=== PATIENT | female | born 1980 | race Caucasian/White ===

== ENCOUNTER 2016-07-10 14:26 | Emergency (ER) | payer OTHER ==
--- NOTE | 2016-07-10 17:49 | DIAGNOSTIC IMAGING REPORT ---
PROCEDURE: XR CHEST 1 VIEW INDICATION: CHEST PAIN TECHNIQUE: Portable AP view 03:20 p.m. COMPARISON: None. FINDINGS: Lungs are clear. Heart and mediastinum are normal. Thorax is normal. IMPRESSION: 1. Negative chest.
--- NOTE | 2016-07-10 17:52 | ED CLINICAL REPORT ---
Clinical Report - Physicians/Mid Levels [facility] [address] [place] [address] 07/10/2016 14:28 Patient: HARJIT STEVENSON Time Seen: 14:38. Arrived- By private vehicle. Historian- patient. HISTORY OF PRESENT ILLNESS Chief Complaint: CHEST PAIN. At its maximum, severity described as moderate. When seen in the E.D., it was gone. It is described as sharp and it is described as located in the central chest area, epigastric area and left arm. This started today at 5 hours ago. Onset during light activity. (L arm sore.). (No worse with palp or resp Estrogen - pt is taking BCP Ms Stevenson ordinarily exercises vigorously without any symptoms.). Similar symptoms previously: REVIEW OF SYSTEMS Uses control pills and sexual partner has had a vasectomy. No chills, fever, eye irritation, mouth sores or cough. No difficulty breathing, pedal edema, abdominal pain, black stools or bloody stools. No back pain, joint pain or difficulty with urination. The patient has had chest pain. All systems otherwise negative, except as recorded above. PAST HISTORY PCP: Mannie Beauchamp [facility] practice. PROBLEMS: Animal Bite. Concussion. Cervical Strain. Contusion. Costochondritis. Abdominal Pain. GERD. Ovarian Cyst. Migraine Headache. Insect Bite(s). Asthma. ADDITIONAL SURGERIES: Breast Augmentation. Foot . Sinus Surgery. Tonsillectomy Illness: Migreaine headache, sequellae following TA. Risk factors for heart disease- positive family history. Denies the following risk factors for heart disease - diabetes, elevated cholesterol, hypertension and smoking. Medications: Tylenol prn. Gabapentin Oral 600 mg, 2x a day as needed. Percocet Oral 10/325 mg, 4x a day. TraZODone HCl Oral 100 mg, daily. Vitamin. Xanax Oral 1 mg, 2x a day as needed. Allergies: Augmentin. Definite Moderate(nausea, vomiting) Doxycycline Calcium. (skin feels like it's "burning") Sulfa Antibiotics. SOCIAL HISTORY Never smoker. ADDITIONAL NOTES The nursing notes have been reviewed. PHYSICAL EXAM Vital Signs: 07/10/2016 18:09 BP: 118/72. HR: 66. RR: 15. O2 saturation: 100%. Temp: 98.1 F. Pain level now: 0/10. 07/10/2016 14:33 BP: 127/68. HR: 56. RR: 18. O2 saturation: 100%. Temp: 98.5 F. Pain level now: 2/10. Appearance: Alert. No acute distress. Eyes: Eyes normal inspection. ENT: Pharynx normal. (two small areas of scar at site of tonsillectomy). Neck: Normal inspection. CVS: Normal heart rate and rhythm. Heart sounds normal. Respiratory: No respiratory distress. Breath sounds normal. Chest nontender. Abdomen: Soft and nontender. Bowel sounds normal. Back: Normal external inspection. Skin: Skin warm. Normal skin color. No rash. Extremities: Extremities exhibit normal ROM. No lower extremity edema. LABS, X-RAYS, AND EKG EKG: No acute process. No acute ischemia. Rate: 63. Normal P waves. Normal KARLOS. Normal QRS complex. Normal axis. Normal ST and T waves. EKG #2: Normal. Chest X-ray: No acute disease. The X-rays were interpreted contemporaneously by me. Laboratory Tests: CBC w Diff: (KARIME: 07/10/2016 14:40) ( MsgRcvd 07/10/2016 15:27) Final results Test Result Flag Units (Reference) WHITE BLOOD COUNT 6.1 K/uL (4.5-11.5) RED BLOOD COUNT 3.70 L M/uL (4.00-5.20) HEMOGLOBIN 11.6 L gm/dL (12.0-16.0) HEMATOCRIT 34.4 L % (36.0-46.0) MEAN CELL VOLUME 93 fL (80-100) MEAN CORPUSCULAR HGB 32 pg (26-34) MEAN CORPUSCULAR HGB CONC 34 g/dL (31-37) RED CELL DISTRIBUTION WIDTH 13.2 % (11.6-14.8) PLATELET COUNT 200 K/uL (150-400) NEUTROPHIL % 44.0 L % (50-75) LYMPH % 47.2 H % (25-40) MONO % 6.8 % (3-14) EOSINOPHIL % 1.1 % (0-4) BASOPHIL % 0.9 % (0-2) [id number]: (KARIME: 07/10/2016 14:40) ( [facility] 07/10/2016 15:39) Final results Test Result Flag Units (Reference) D-DIMER QUANTITATIVE < 0.27 L ug/mLFEU (0.27-0.52) The primary value of this quantitative assay relates toits negative predictive value (i.e. exclusion) of pulmonaryembolism/deep vein thrombosis/DIC.Elevated levels of d-dimer may also occur with:, age, cancer, inflammation, liver disease,post-op, infection, hematoma, coronary disease, peripheralarteriopathy, bleeding disorders and thrombolytic treatment.Results should be correlated with other clinical andradiological data.Testing Methodology: Latex Immunoassay Troponin-I: (KARIME: 07/10/2016 15:47) ( [facility] 07/10/2016 17:45) Final results Test Result Flag Units (Reference) TROPONIN I <0.05 ng/mL (0.00-1.5) TROPONIN REFERENCE RANGE:<0.1 NEGATIVE0.1-1.5 INDETERMINANT>1.5 POSITIVE CHEM 13 PANEL: (KARIME: 07/10/2016 14:40) ( [facility] 07/10/2016 15:39) Final results Test Result Flag Units (Reference) GLUCOSE 81 mg/dL (70-110) BUN 14 mg/dL (7-18) CREATININE 0.9 mg/dL (0.6-1.3) Estimated GFR >60 mL/min Estimated GFR- >60 mL/min Note: Persistent reduction over 3 months in eGFR<60 mL/min/1.73 m2 defines CKD. Patients with eGFR values>=60 mL/min/1.73 m2 may also have CKD if evidence ofpersistent proteinuria. Additional information may be foundat www.kidney.org. SODIUM 142 mmol/L (136-145) POTASSIUM 3.5 mmol/L (3.5-5.1) CHLORIDE 105 mmol/L (98-107) CARBON DIOXIDE 25 mmol/L (21-32) CALCIUM 8.5 mg/dL (8.5-10.1) TOTAL PROTEIN 7.2 g/dL (6.4-8.2) ALBUMIN 3.9 g/dL (3.3-5.0) BILIRUBIN, TOTAL 0.2 mg/dL (0.0-1.0) ALKALINE PHOSPHATASE 60 U/L (46-116) AST (SGOT) 21 U/L (15-37) ALT (SGPT) 29 U/L (12-78) MAGNESIUM 2.3 mg/dL (1.8-2.4) CPK 161 U/L (24-260) TROPONIN I 0.08 ng/mL (0.00-1.5) TROPONIN REFERENCE RANGE:<0.1 NEGATIVE0.1-1.5 INDETERMINANT>1.5 POSITIVE . PROGRESS AND PROCEDURES Course of Care: 15:35 07/10/16. repeat EKG 15:46 07/10/16. D dimer is negative. 17:47 07/10/16. Second troponin and EKG normal. Given two negative EKGs and troponins greater than 6 hours after onset of symptoms this is not a [place]. Given usual exercise tolerance this is unlikely unstable angina. Not PE - D dimer neg Not TA dissection or pneumothorax by CXR and history Not esophageal rupture by history. CLINICAL IMPRESSION Chest pain. Clinical picture does not suggest myocardial infarction, aortic dissection, pulmonary embolism, pneumonia or pleurisy. Clinical picture does not suggest pneumothorax. INSTRUCTIONS (TAKE ONE ASPIRIN PER DAY IMMEDIATE RECHECK FOR NEW BAD SYMPTOMS OR FOR STRONG CHEST PAIN OR SHORTNESS OF BREATH. NO HEAVY WORKOUTS UNTIL YOU SEE YOUR DR.). Follow-up: Follow up with your doctor in six days. Understanding of the discharge instructions verbalized by patient. (Electronically signed by Len Lopes MD 07/13/2016 6:39)
--- NOTE | 2016-07-10 17:52 | ED CLINICAL REPORT ---
Clinical Report - Physicians/Mid Levels [facility] [address] [place] [address] 07/10/2016 14:28 Patient: HARJIT STEVENSON Time Seen: 14:38. Arrived- By private vehicle. Historian- patient. HISTORY OF PRESENT ILLNESS Chief Complaint: CHEST PAIN. At its maximum, severity described as moderate. When seen in the E.D., it was gone. It is described as sharp and it is described as located in the central chest area, epigastric area and left arm. This started today at 5 hours ago. Onset during light activity. (L arm sore.). (No worse with palp or resp Estrogen - pt is taking BCP Ms Stevenson ordinarily exercises vigorously without any symptoms.). Similar symptoms previously: REVIEW OF SYSTEMS Uses control pills and sexual partner has had a vasectomy. No chills, fever, eye irritation, mouth sores or cough. No difficulty breathing, pedal edema, abdominal pain, black stools or bloody stools. No back pain, joint pain or difficulty with urination. The patient has had chest pain. All systems otherwise negative, except as recorded above. PAST HISTORY PCP: Mannie Beauchamp [facility] practice. PROBLEMS: Animal Bite. Concussion. Cervical Strain. Contusion. Costochondritis. Abdominal Pain. GERD. Ovarian Cyst. Migraine Headache. Insect Bite(s). Asthma. ADDITIONAL SURGERIES: Breast Augmentation. Foot . Sinus Surgery. Tonsillectomy Illness: Migreaine headache, sequellae following TA. Risk factors for heart disease- positive family history. Denies the following risk factors for heart disease - diabetes, elevated cholesterol, hypertension and smoking. Medications: Tylenol prn. Gabapentin Oral 600 mg, 2x a day as needed. Percocet Oral 10/325 mg, 4x a day. TraZODone HCl Oral 100 mg, daily. Vitamin. Xanax Oral 1 mg, 2x a day as needed. Allergies: Augmentin. Definite Moderate(nausea, vomiting) Doxycycline Calcium. (skin feels like it's "burning") Sulfa Antibiotics. SOCIAL HISTORY Never smoker. ADDITIONAL NOTES The nursing notes have been reviewed. PHYSICAL EXAM Vital Signs: 07/10/2016 18:09 BP: 118/72. HR: 66. RR: 15. O2 saturation: 100%. Temp: 98.1 F. Pain level now: 0/10. 07/10/2016 14:33 BP: 127/68. HR: 56. RR: 18. O2 saturation: 100%. Temp: 98.5 F. Pain level now: 2/10. Appearance: Alert. No acute distress. Eyes: Eyes normal inspection. ENT: Pharynx normal. (two small areas of scar at site of tonsillectomy). Neck: Normal inspection. CVS: Normal heart rate and rhythm. Heart sounds normal. Respiratory: No respiratory distress. Breath sounds normal. Chest nontender. Abdomen: Soft and nontender. Bowel sounds normal. Back: Normal external inspection. Skin: Skin warm. Normal skin color. No rash. Extremities: Extremities exhibit normal ROM. No lower extremity edema. LABS, X-RAYS, AND EKG EKG: No acute process. No acute ischemia. Rate: 63. Normal P waves. Normal KARLOS. Normal QRS complex. Normal axis. Normal ST and T waves. EKG #2: Normal. Chest X-ray: No acute disease. The X-rays were interpreted contemporaneously by me. Laboratory Tests: CBC w Diff: (KARIME: 07/10/2016 14:40) ( MsgRcvd 07/10/2016 15:27) Final results Test Result Flag Units (Reference) WHITE BLOOD COUNT 6.1 K/uL (4.5-11.5) RED BLOOD COUNT 3.70 L M/uL (4.00-5.20) HEMOGLOBIN 11.6 L gm/dL (12.0-16.0) HEMATOCRIT 34.4 L % (36.0-46.0) MEAN CELL VOLUME 93 fL (80-100) MEAN CORPUSCULAR HGB 32 pg (26-34) MEAN CORPUSCULAR HGB CONC 34 g/dL (31-37) RED CELL DISTRIBUTION WIDTH 13.2 % (11.6-14.8) PLATELET COUNT 200 K/uL (150-400) NEUTROPHIL % 44.0 L % (50-75) LYMPH % 47.2 H % (25-40) MONO % 6.8 % (3-14) EOSINOPHIL % 1.1 % (0-4) BASOPHIL % 0.9 % (0-2) [id number]: (KARIME: 07/10/2016 14:40) ( [facility] 07/10/2016 15:39) Final results Test Result Flag Units (Reference) D-DIMER QUANTITATIVE < 0.27 L ug/mLFEU (0.27-0.52) The primary value of this quantitative assay relates toits negative predictive value (i.e. exclusion) of pulmonaryembolism/deep vein thrombosis/DIC.Elevated levels of d-dimer may also occur with:, age, cancer, inflammation, liver disease,post-op, infection, hematoma, coronary disease, peripheralarteriopathy, bleeding disorders and thrombolytic treatment.Results should be correlated with other clinical andradiological data.Testing Methodology: Latex Immunoassay Troponin-I: (KARIME: 07/10/2016 15:47) ( [facility] 07/10/2016 17:45) Final results Test Result Flag Units (Reference) TROPONIN I <0.05 ng/mL (0.00-1.5) TROPONIN REFERENCE RANGE:<0.1 NEGATIVE0.1-1.5 INDETERMINANT>1.5 POSITIVE CHEM 13 PANEL: (KARIME: 07/10/2016 14:40) ( [facility] 07/10/2016 15:39) Final results Test Result Flag Units (Reference) GLUCOSE 81 mg/dL (70-110) BUN 14 mg/dL (7-18) CREATININE 0.9 mg/dL (0.6-1.3) Estimated GFR >60 mL/min Estimated GFR- >60 mL/min Note: Persistent reduction over 3 months in eGFR<60 mL/min/1.73 m2 defines CKD. Patients with eGFR values>=60 mL/min/1.73 m2 may also have CKD if evidence ofpersistent proteinuria. Additional information may be foundat www.kidney.org. SODIUM 142 mmol/L (136-145) POTASSIUM 3.5 mmol/L (3.5-5.1) CHLORIDE 105 mmol/L (98-107) CARBON DIOXIDE 25 mmol/L (21-32) CALCIUM 8.5 mg/dL (8.5-10.1) TOTAL PROTEIN 7.2 g/dL (6.4-8.2) ALBUMIN 3.9 g/dL (3.3-5.0) BILIRUBIN, TOTAL 0.2 mg/dL (0.0-1.0) ALKALINE PHOSPHATASE 60 U/L (46-116) AST (SGOT) 21 U/L (15-37) ALT (SGPT) 29 U/L (12-78) MAGNESIUM 2.3 mg/dL (1.8-2.4) CPK 161 U/L (24-260) TROPONIN I 0.08 ng/mL (0.00-1.5) TROPONIN REFERENCE RANGE:<0.1 NEGATIVE0.1-1.5 INDETERMINANT>1.5 POSITIVE . PROGRESS AND PROCEDURES Course of Care: 15:35 07/10/16. repeat EKG 15:46 07/10/16. D dimer is negative. 17:47 07/10/16. Second troponin and EKG normal. Given two negative EKGs and troponins greater than 6 hours after onset of symptoms this is not a [place]. Given usual exercise tolerance this is unlikely unstable angina. Not PE - D dimer neg Not TA dissection or pneumothorax by CXR and history Not esophageal rupture by history. CLINICAL IMPRESSION Chest pain. Clinical picture does not suggest myocardial infarction, aortic dissection, pulmonary embolism, pneumonia or pleurisy. Clinical picture does not suggest pneumothorax. INSTRUCTIONS (TAKE ONE ASPIRIN PER DAY IMMEDIATE RECHECK FOR NEW BAD SYMPTOMS OR FOR STRONG CHEST PAIN OR SHORTNESS OF BREATH. NO HEAVY WORKOUTS UNTIL YOU SEE YOUR DR.). Follow-up: Follow up with your doctor in six days. Understanding of the discharge instructions verbalized by patient. (Electronically signed by Len Lopes MD 07/13/2016 6:39)
--- NOTE | 2016-07-10 17:53 | ED ORDER SUMMARY ---
..... Patient: HARJIT STEVENSON OrderSheet [facility] VisitID: [id number] [address] [place] [address] 36y, F Registration Date/Time: 07/10/2016 ORDER SHEET Weight: 58.9 kg (stated) Allergies: Augmentin, Doxycycline Calcium, Sulfa Antibiotics GENERAL ORDERS: Chest 1V Urgent (15:08 07/10/2016 Francois EDGAR) (Ack 15:16 Celia) (15:30 SRoberts R.N.) Digital Music Instructor (Continuous) (15:08 07/10/2016 Francois EDGAR) (15:13 SRoberts R.N.) Cardiac Panel Stat (15:08 07/10/2016 Francois EDGAR) (Ack 15:16 Celia) (15:30 SRoberts R.N.) D-Dimer Urgent (15:08 07/10/2016 Francois EDGAR) (Ack 15:16 Celia) (15:30 SRoberts R.N.) Oxygen (2 L/min) (NC) (15:08 07/10/2016 Francois EDGAR) (15:13 SRoberts R.N.) Pulse oximeter (15:08 07/10/2016 Francois EDGAR) (15:13 SRoberts R.N.) EKG - ER Stat (15:08 07/10/2016 Francois EDGAR) (15:16 Celia) EKG - ER Repeat Stat (15:47 07/10/2016 Francois EDGAR) (Ack 15:49 Celia) (16:10 Celia) Troponin-I (REPEAT BLOOD DRAW AT 1600 HRS) Urgent (15:47 07/10/2016 Francois EDGAR) (Ack 15:49 Celia) MEDICATION ORDERS: Aspirin PO 325 mg (NOW) (17:50 07/10/2016 Francois EDGAR) IV FLUIDS: IV Saline Lock (15:08 07/10/2016 Francois EDGAR) (15:12 SRoberts R.N.) ORDER SHEET NOTES: [Electronically signed by Penelope Orellana R.N. (10:06 07/11/2016)] [Electronically signed by Len Lopes MD (06:39 07/13/2016)] [Electronically locked/signed by Penelope Orellana R.N. (10:06 07/11/2016)]
--- NOTE | 2016-07-10 17:53 | ED NURSING NOTES ---
Clinical Report - Nurses [facility] [address] [place] [address] 07/10/2016 14:28 [id number] Triage time 14:33. Acuity: LEVEL 2. Chief Complaint: CHEST PAIN and LEFT ARM PAIN (Midsternal, non radiating. Lt shoulder pain started a couple of days ago intermittant and last few days, continuous.). Alert. No acute distress. SEPSIS SCREEN: Sepsis Screen: negative. Negative (no infection suspected/documented). --14:43 Penelope Orellana R.N. 14:33 07/10/16. BP: 127/68 taken on the left arm, while sitting. HR: 56. RR: 18. O2 saturation: 100%. Temp: 98.5 F. Pain level now: 2/10. Additional comments: 10 at the worst . --14:43 Penelope Orellana R.N. 14:33 07/10/16. BP: 127/68 taken on the left arm, while sitting. HR: 56. RR: 18. O2 saturation: 100%. Temp: 98.5 F. Pain level now: 2/10. Additional comments: 10 at the worst . --14:44 Penelope Orellana R.N. Weight: 58.9 kg stated. Height/Length: 62 inches Per Patient. BMI: 23.8. --14:41 Penelope Orellana R.N. Medications Gabapentin Oral 600 mg, 2x a day as needed. Percocet Oral 10/325 mg, 4x a day. TraZODone HCl Oral 100 mg, daily. Vitamin. Xanax Oral 1 mg, 2x a day as needed. --14:37 Penelope Orellana R.N. Tylenol prn. --14:38 Penelope Orellana R.N. Medication/allergy information source: the patient. --14:43 Penelope Orellana R.N. Allergies Augmentin. Definite Moderate(nausea, vomiting) Doxycycline Calcium. (skin feels like it's "burning") Sulfa Antibiotics. --14:37 Penelope Orellana R.N. History Arrived by private vehicle, and accompanied by family. Primary physician (tri). This started today. Reports experiencing sweating episodes. She has had nausea. No difficulty breathing or vomiting. Treatment DIRECTOR: (percocet 5 mg, old script). PAST MEDICAL HX: Immunizations: up-to-date. Uses control pills. SOCIAL HX: Smoker- current status unknown. Occasional alcohol use. History of drug use: marijuana. Recently used drugs days ago. No infectious disease exposure. ABUSE ASSESSMENT: No report of abuse. FALL RISK ASSESSMENT: Fall risk assessment completed. No fall risk identified. NUTRITIONAL RISK ASSESSMENT: The nutritional risk assessment revealed no deficiencies. FUNCTIONAL ASSESSMENT: Functional assessment: no impairments noted. LEARNING NEEDS ASSESSMENT: The learning needs assessment revealed no barriers. SKIN INTEGRITY ASSESSMENT: Skin integrity risk assessment completed. No skin integrity risk identified. --14:43 Penelope Orellana R.N. PROBLEMS: Animal Bite. Concussion. Cervical Strain. Contusion. Costochondritis. Abdominal Pain. GERD. Ovarian Cyst. Migraine Headache. Insect Bite(s). Asthma. --14:40 Penelope Orellana R.N. ADDITIONAL SURGERIES: Breast Augmentation. Foot . Sinus Surgery. Tonsillectomy. --14:40 Penelope Orellana R.N. Interventions ID band on patient. To room. --14:43 Penelope Orellana R.N. PHYSICAL ASSESSMENT Ambulatory to room. Patient gowned. GENERAL / NEURO / PSYCH: Alert. Oriented X 4. Appears in no acute distress. Appears anxious. HEENT: Mucous membranes are pink. RESPIRATORY: Respirations not labored. CVS: Normal sinus rhythm noted. Cardiac rhythm: sinus bradycardia; (57). Pulses within normal limits. Capillary refill less than 2 seconds. GI / : Abdomen nontender. EXTREMITIES: No lower extremity edema. SKIN: Skin is warm and dry. Normal skin turgor. Skin is non-tender. --14:44 Penelope Orellana R.N. NURSING PROGRESS NOTES wheelage clerk, pulse oximeter and NIBP monitor placed on patient; cotton weigher- Lead II; monitor alarms on. Patient gowned. Head of bed elevated. Two patient identifiers checked. Call light placed in reach. Side rails up x 2. Bed placed in lowest position. Brakes of bed on. Patient ready for evaluation. --14:44 Penelope Orellana R.N. 14:30 07/10/2016 Site #1 started via IV in the right antecubital space with an 20g angiocath, with aseptic technique and good blood return; one attempt. Blood drawn: rainbow set. Labeled in the presence of the patient and sent to the lab. Saline lock flushed with 10 mL saline. --14:45 Penelope Orellana R.N. Oxygen administered by nasal cannula at 2 liters. --15:30 Penelope Orellana R.N. EKG time: (14:39). EKG was performed by a tech and shown to the ED physician. --15:39 Twila Jerry EKG time: (15:59). EKG was performed by a tech and shown to the ED physician. --16:10 Twila Jerry. DISPOSITION / DISCHARGE 18:04 07/10/2016 Site #1 removed upon discharge. Bandaid applied. --18:09 Giacomo Watters R.N. Cardiac rhythm: normal sinus rhythm; (SR). Departure time: 1806. No learning barriers present. Discharge instructions provided and reviewed with the patient and spouse. Reviewed medication(s) dosing and course information (per dc instructions pt to take an aspirin daily). Activity restrictions reviewed (per dc instructions no heavy workouts). Patient and spouse verbalized understanding. Written instructions provided in Spanish. The patient was discharged by the physician. She was discharged home and accompanied by spouse. She left the Emergency Department ambulatory and via private vehicle. Spouse driving. ( pt dc only by this RN, pt pain free, in SR on monitor, given dc instructions and allowed time for questions.). --18:14 Giacomo Watters R.N. 18:09 07/10/16. BP: 118/72. HR: 66. RR: 15. O2 saturation: 100%. Temp: 98.1 F. Pain level now: 0/10. --18:14 Giacomo Watters R.N. Locked/Released at 07/11/2016 10:06 by Penelope Orellana R.N.
--- NOTE | 2016-07-10 17:53 | ED ORDER SUMMARY ---
..... Patient: HARJIT STEVENSON OrderSheet [facility] VisitID: [id number] [address] [place] [address] 36y, F Registration Date/Time: 07/10/2016 ORDER SHEET Weight: 58.9 kg (stated) Allergies: Augmentin, Doxycycline Calcium, Sulfa Antibiotics GENERAL ORDERS: Chest 1V Urgent (15:08 07/10/2016 Francois EDGAR) (Ack 15:16 Celia) (15:30 SRoberts R.N.) Assignment Officer (Continuous) (15:08 07/10/2016 Francois EDGAR) (15:13 SRoberts R.N.) Cardiac Panel Stat (15:08 07/10/2016 Francois EDGAR) (Ack 15:16 Celia) (15:30 SRoberts R.N.) D-Dimer Urgent (15:08 07/10/2016 Francois EDGAR) (Ack 15:16 Celia) (15:30 SRoberts R.N.) Oxygen (2 L/min) (NC) (15:08 07/10/2016 Francois EDGAR) (15:13 SRoberts R.N.) Pulse oximeter (15:08 07/10/2016 Francois EDGAR) (15:13 SRoberts R.N.) EKG - ER Stat (15:08 07/10/2016 Francois EDGAR) (15:16 Celia) EKG - ER Repeat Stat (15:47 07/10/2016 Francois EDGAR) (Ack 15:49 Celia) (16:10 Celia) Troponin-I (REPEAT BLOOD DRAW AT 1600 HRS) Urgent (15:47 07/10/2016 Francois EDGAR) (Ack 15:49 Celia) MEDICATION ORDERS: Aspirin PO 325 mg (NOW) (17:50 07/10/2016 Francois EDGAR) IV FLUIDS: IV Saline Lock (15:08 07/10/2016 Francois EDGAR) (15:12 SRoberts R.N.) ORDER SHEET NOTES: [Electronically signed by Penelope Orellana R.N. (10:06 07/11/2016)] [Electronically signed by Len Lopes MD (06:39 07/13/2016)] [Electronically locked/signed by Penelope Orellana R.N. (10:06 07/11/2016)]
--- NOTE | 2016-07-10 17:53 | ED NURSING NOTES ---
Clinical Report - Nurses [facility] [address] [place] [address] 07/10/2016 14:28 [id number] Triage time 14:33. Acuity: LEVEL 2. Chief Complaint: CHEST PAIN and LEFT ARM PAIN (Midsternal, non radiating. Lt shoulder pain started a couple of days ago intermittant and last few days, continuous.). Alert. No acute distress. SEPSIS SCREEN: Sepsis Screen: negative. Negative (no infection suspected/documented). --14:43 Penelope Orellana R.N. 14:33 07/10/16. BP: 127/68 taken on the left arm, while sitting. HR: 56. RR: 18. O2 saturation: 100%. Temp: 98.5 F. Pain level now: 2/10. Additional comments: 10 at the worst . --14:43 Penelope Orellana R.N. 14:33 07/10/16. BP: 127/68 taken on the left arm, while sitting. HR: 56. RR: 18. O2 saturation: 100%. Temp: 98.5 F. Pain level now: 2/10. Additional comments: 10 at the worst . --14:44 Penelope Orellana R.N. Weight: 58.9 kg stated. Height/Length: 62 inches Per Patient. BMI: 23.8. --14:41 Penelope Orellana R.N. Medications Gabapentin Oral 600 mg, 2x a day as needed. Percocet Oral 10/325 mg, 4x a day. TraZODone HCl Oral 100 mg, daily. Vitamin. Xanax Oral 1 mg, 2x a day as needed. --14:37 Penelope Orellana R.N. Tylenol prn. --14:38 Penelope Orellana R.N. Medication/allergy information source: the patient. --14:43 Penelope Orellana R.N. Allergies Augmentin. Definite Moderate(nausea, vomiting) Doxycycline Calcium. (skin feels like it's "burning") Sulfa Antibiotics. --14:37 Penelope Orellana R.N. History Arrived by private vehicle, and accompanied by family. Primary physician (tri). This started today. Reports experiencing sweating episodes. She has had nausea. No difficulty breathing or vomiting. Treatment [employer]: (percocet 5 mg, old script). PAST MEDICAL HX: Immunizations: up-to-date. Uses control pills. SOCIAL HX: Smoker- current status unknown. Occasional alcohol use. History of drug use: marijuana. Recently used drugs days ago. No infectious disease exposure. ABUSE ASSESSMENT: No report of abuse. FALL RISK ASSESSMENT: Fall risk assessment completed. No fall risk identified. NUTRITIONAL RISK ASSESSMENT: The nutritional risk assessment revealed no deficiencies. FUNCTIONAL ASSESSMENT: Functional assessment: no impairments noted. LEARNING NEEDS ASSESSMENT: The learning needs assessment revealed no barriers. SKIN INTEGRITY ASSESSMENT: Skin integrity risk assessment completed. No skin integrity risk identified. --14:43 Penelope Orellana R.N. PROBLEMS: Animal Bite. Concussion. Cervical Strain. Contusion. Costochondritis. Abdominal Pain. GERD. Ovarian Cyst. Migraine Headache. Insect Bite(s). Asthma. --14:40 Penelope Orellana R.N. ADDITIONAL SURGERIES: Breast Augmentation. Foot . Sinus Surgery. Tonsillectomy. --14:40 Penelope Orellana R.N. Interventions ID band on patient. To room. --14:43 Penelope Orellana R.N. PHYSICAL ASSESSMENT Ambulatory to room. Patient gowned. GENERAL / NEURO / PSYCH: Alert. Oriented X 4. Appears in no acute distress. Appears anxious. HEENT: Mucous membranes are pink. RESPIRATORY: Respirations not labored. CVS: Normal sinus rhythm noted. Cardiac rhythm: sinus bradycardia; (57). Pulses within normal limits. Capillary refill less than 2 seconds. GI / : Abdomen nontender. EXTREMITIES: No lower extremity edema. SKIN: Skin is warm and dry. Normal skin turgor. Skin is non-tender. --14:44 Penelope Orellana R.N. NURSING PROGRESS NOTES desk monitor, pulse oximeter and NIBP monitor placed on patient; security monitor- Lead II; monitor alarms on. Patient gowned. Head of bed elevated. Two patient identifiers checked. Call light placed in reach. Side rails up x 2. Bed placed in lowest position. Brakes of bed on. Patient ready for evaluation. --14:44 Peneloep Orellana R.N. 14:30 07/10/2016 Site #1 started via IV in the right antecubital space with an 20g angiocath, with aseptic technique and good blood return; one attempt. Blood drawn: rainbow set. Labeled in the presence of the patient and sent to the lab. Saline lock flushed with 10 mL saline. --14:45 Penelope Orellana R.N. Oxygen administered by nasal cannula at 2 liters. --15:30 Penelope Orellana R.N. EKG time: (14:39). EKG was performed by a tech and shown to the ED physician. --15:39 Twila Jerry EKG time: (15:59). EKG was performed by a tech and shown to the ED physician. --16:10 Twila Jerry. DISPOSITION / DISCHARGE 18:04 07/10/2016 Site #1 removed upon discharge. Bandaid applied. --18:09 Giacomo Watters R.N. Cardiac rhythm: normal sinus rhythm; (SR). Departure time: 1806. No learning barriers present. Discharge instructions provided and reviewed with the patient and spouse. Reviewed medication(s) dosing and course information (per dc instructions pt to take an aspirin daily). Activity restrictions reviewed (per dc instructions no heavy workouts). Patient and spouse verbalized understanding. Written instructions provided in Pashto. The patient was discharged by the physician. She was discharged home and accompanied by spouse. She left the Emergency Department ambulatory and via private vehicle. Spouse driving. ( pt dc only by this RN, pt pain free, in SR on monitor, given dc instructions and allowed time for questions.). --18:14 Giacomo Watters R.N. 18:09 07/10/16. BP: 118/72. HR: 66. RR: 15. O2 saturation: 100%. Temp: 98.1 F. Pain level now: 0/10. --18:14 Giacomo Watters R.N. Locked/Released at 07/11/2016 10:06 by Penelope Orellana R.N.
--- NOTE | 2016-07-13 06:40 | ED DISCHARGE INSTRUCTIONS ---
Patient: HARJIT STEVENSON General Instructions [facility] VisitID: [id number] [address] [place] [address] 36y, F Registration Date/Time: 07/10/2016 Chest pain. INSTRUCTIONS (TAKE ONE ASPIRIN PER DAY IMMEDIATE RECHECK FOR NEW BAD SYMPTOMS OR FOR STRONG CHEST PAIN OR SHORTNESS OF BREATH. NO HEAVY WORKOUTS UNTIL YOU SEE YOUR DR.). Follow-up: Follow up with your doctor in six days. Understanding of the discharge instructions verbalized by patient. ADDITIONAL INFORMATION Chest Pain, Uncertain Cause Chest pain can happen for a number of reasons. Sometimes the cause can not be determined. If yourcondition does not seem serious, and your pain does not appear to be coming from your heart, your doctor may recommend watching it closely. Sometimes the signs of a serious problem take more time to appear. Therefore, watch for the warning signs listed below. Home care After your visit, follow these recommendations: Rest today and avoid strenuous activity. Take any prescribed medicine as directed. Follow-up care Follow up with your doctor or this facility as instructed or if you do not start to feel better within 24 hours. Call 911 Get immediate medical attention if any of the following occur: A change in the type of pain: if it feels different, becomes more severe, lasts longer, or begins to spread into your shoulder, arm, neck, jaw or back Shortness of breath or increased pain with breathing Weakness, dizziness, or fainting Rapid heart beat Get prompt medical attention Call your doctor right away if any of the following occur: Cough with dark colored sputum (phlegm) or blood Fever of 100.4F(38C) or higher, or as directed by your health care provider Swelling, pain or redness in one leg You have been given the following additional information: Chest Pain, Uncertain Cause (Electronically signed by Len Lopes MD 07/13/2016 6:39)
--- NOTE | 2016-07-13 06:40 | ED MAR SUMMARY ---
..... Medication Administration Record [facility] [address], [place] [id number] Patient: HARJIT STEVENSON Visit ID: [id number] 36y, F Weight: 58.9 kg Height/Length: 62 in BMI: 23.8 ALLERGIES: Augmentin, Doxycycline Calcium, Sulfa Antibiotics
--- NOTE | 2016-07-13 06:40 | ED MAR SUMMARY ---
..... Medication Administration Record [facility] [address] [place], [place] [id number] Patient: HARJIT STEVENSON Visit ID: [id number] 36y, F Weight: 58.9 kg Height/Length: 62 in BMI: 23.8 ALLERGIES: Augmentin, Doxycycline Calcium, Sulfa Antibiotics
--- NOTE | 2016-07-13 06:40 | ED MED RECONCILIATION SUMMARY ---
Patient: GRAHAM HARJIT David Medication Reconciliation Report [facility] VisitID: [id number] [address] [place] [address] 36y, F Registration Date/Time: 07/10/2016 Weight: 58.9 kg Height/Length: 62 in. BMI: 23.8 ALLERGIES: Augmentin, Doxycycline Calcium, Sulfa Antibiotics The patient's Home Medications are listed below: THE FOLLOWING MEDICATIONS NEED TO BE RECONCILED: Gabapentin Oral 600 mg, 2x a day Percocet Oral 10/325 mg, 4x a day TraZODone HCl Oral 100 mg, daily Tylenol prn Vitamin Xanax Oral 1 mg, 2x a day The source(s) of the original Home Medication information: patient The following Medications were given to the patient in the Emergency Department: None. The following Medications were prescribed to the patient: None.
--- NOTE | 2016-07-13 06:40 | ED DISCHARGE INSTRUCTIONS ---
Patient: HARJIT STEVENSON General Instructions [facility] VisitID: [id number] [address] [place] [address] 36y, F Registration Date/Time: 07/10/2016 Chest pain. INSTRUCTIONS (TAKE ONE ASPIRIN PER DAY IMMEDIATE RECHECK FOR NEW BAD SYMPTOMS OR FOR STRONG CHEST PAIN OR SHORTNESS OF BREATH. NO HEAVY WORKOUTS UNTIL YOU SEE YOUR DR.). Follow-up: Follow up with your doctor in six days. Understanding of the discharge instructions verbalized by patient. ADDITIONAL INFORMATION Chest Pain, Uncertain Cause Chest pain can happen for a number of reasons. Sometimes the cause can not be determined. If yourcondition does not seem serious, and your pain does not appear to be coming from your heart, your doctor may recommend watching it closely. Sometimes the signs of a serious problem take more time to appear. Therefore, watch for the warning signs listed below. Home care After your visit, follow these recommendations: Rest today and avoid strenuous activity. Take any prescribed medicine as directed. Follow-up care Follow up with your doctor or this facility as instructed or if you do not start to feel better within 24 hours. Call 911 Get immediate medical attention if any of the following occur: A change in the type of pain: if it feels different, becomes more severe, lasts longer, or begins to spread into your shoulder, arm, neck, jaw or back Shortness of breath or increased pain with breathing Weakness, dizziness, or fainting Rapid heart beat Get prompt medical attention Call your doctor right away if any of the following occur: Cough with dark colored sputum (phlegm) or blood Fever of 100.4F(38C) or higher, or as directed by your health care provider Swelling, pain or redness in one leg You have been given the following additional information: Chest Pain, Uncertain Cause (Electronically signed by Len Lopes MD 07/13/2016 6:39)
--- NOTE | 2016-07-13 06:40 | ED MED RECONCILIATION SUMMARY ---
Patient: GRAHAM HARJIT David Medication Reconciliation Report [facility] VisitID: [id number] [address] [place] [address] 36y, F Registration Date/Time: 07/10/2016 Weight: 58.9 kg Height/Length: 62 in. BMI: 23.8 ALLERGIES: Augmentin, Doxycycline Calcium, Sulfa Antibiotics The patient's Home Medications are listed below: THE FOLLOWING MEDICATIONS NEED TO BE RECONCILED: Gabapentin Oral 600 mg, 2x a day Percocet Oral 10/325 mg, 4x a day TraZODone HCl Oral 100 mg, daily Tylenol prn Vitamin Xanax Oral 1 mg, 2x a day The source(s) of the original Home Medication information: patient The following Medications were given to the patient in the Emergency Department: None. The following Medications were prescribed to the patient: None.
== END 2016-07-10 18:06 | disposition home or self-care (01) ==
LOC: ED SRH 14:26
DX: R07.9 Chest pain, unspecified (principal); Z79.899 Other long term (current) drug therapy; Z88.1 Allergy status to other antibiotic agents; Z88.2 Allergy status to sulfonamides
CPT/HCPCS: 90074; 90100; 90616; 91556; 92610; 92720; 95059

== ENCOUNTER 2016-08-14 10:39 | Emergency (ER) | payer OTHER ==
--- NOTE | 2016-08-14 11:45 | ED ORDER SUMMARY ---
..... Patient: HARJIT STEVENSON OrderSheet [facility] VisitID: [id number] [address] [place] [address] 36y, F Registration Date/Time: 08/14/2016 ORDER SHEET Weight: 60.7 kg (stated) Allergies: Augmentin, Doxycycline Calcium, Sulfa Antibiotics GENERAL ORDERS: Toe Right Urgent (11:12 08/14/2016 DDean R.N. per protocol) (Ack 11:14 Carmela) (11:37 Kanu) Dress Wounds (antibiotic oint and bandaid) (11:42 08/14/2016 [facility]) (16:39 DDean R.N.) Post-op Shoe (right foot) (11:43 [facility]/2016 [facility] (16:39 DDean R.N.) Oni Tape Toes (11:43 08/14/2016 [facility] DO) (16:39 DDean R.N.) Crutches (11:43 08/14/2016 [facility] DO) (Cancelled: Other- pt had own 16:40 DDean R.N.) MEDICATION ORDERS: IV FLUIDS: ORDER SHEET NOTES: [Electronically signed by Armond Valenzuela DO (13:36 08/14/2016)] [Electronically signed by Анна Bowman R.N. (16:40 08/14/2016)] [Electronically locked/signed by Анна Bowman R.N. (16:40 08/14/2016)]
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
--- NOTE | 2016-08-14 11:45 | ED ORDER SUMMARY ---
..... Patient: HARJIT STEVENSON OrderSheet [facility] VisitID: [id number] [address] [place] [address] 36y, F Registration Date/Time: 08/14/2016 ORDER SHEET Weight: 60.7 kg (stated) Allergies: Augmentin, Doxycycline Calcium, Sulfa Antibiotics GENERAL ORDERS: Toe Right Urgent (11:12 08/14/2016 DDean R.N. per protocol) (Ack 11:14 Carmela) (11:37 Kanu) Dress Wounds (antibiotic oint and bandaid) (11:42 [facility]/14/2016 [facility]) (16:39 DDean R.N.) Post-op Shoe (right foot) [facility]11:43 [facility] (16:39 DDean R.N.) Oni Tape Toes (11:43 08/14/2016 [facility] DO) (16:39 DDean R.N.) Crutches (11:43 08/14/2016 [facility] DO) (Cancelled: Other- pt had own 16:40 DDean R.N.) MEDICATION ORDERS: IV FLUIDS: ORDER SHEET NOTES: [Electronically signed by Armond Valenzuela DO (13:36 08/14/2016)] [Electronically signed by Анна Bowman R.N. (16:40 08/14/2016)] [Electronically locked/signed by Анна Bowman R.N. (16:40 08/14/2016)]
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
--- NOTE | 2016-08-14 16:40 | ED MAR SUMMARY ---
..... Medication Administration Record [facility] [address] [place], [place] [id number] Patient: HARJIT STEVENSON Visit ID: [id number] 36y, F Weight: 60.7 kg Height/Length: 62 in BMI: 24.5 ALLERGIES: Augmentin, Doxycycline Calcium, Sulfa Antibiotics
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
--- NOTE | 2016-08-14 16:40 | ED MAR SUMMARY ---
..... Medication Administration Record [facility] [address] [place], [place] [id number] Patient: HARJIT STEVENSON Visit ID: [id number] 36y, F Weight: 60.7 kg Height/Length: 62 in BMI: 24.5 ALLERGIES: Augmentin, Doxycycline Calcium, Sulfa Antibiotics
--- NOTE | 2016-08-14 16:40 | ED MED RECONCILIATION SUMMARY ---
Patient: HARJIT STEVENSON Medication Reconciliation Report [facility] VisitID: [id number] [address] [place] [address] 36y, F Registration Date/Time: 08/14/2016 Weight: 60.7 kg Height/Length: 62 in. BMI: 24.5 ALLERGIES: Augmentin, Doxycycline Calcium, Sulfa Antibiotics The patient's Home Medications are listed below: THE FOLLOWING MEDICATIONS NEED TO BE RECONCILED: Gabapentin Oral 600 mg, 2x a day Linzess Oral (145 mcg) 1 capsule, daily Percocet Oral 10/325 mg, 4x a day TraZODone HCl Oral 100 mg, daily Xanax Oral 1 mg, 2x a day The source(s) of the original Home Medication information: Not obtained. The following Medications were given to the patient in the Emergency Department: None. The following Medications were prescribed to the patient: Acetaminophen (available over the counter): take according to label instructions. -- Armond Valenzuela DO Ibuprofen 600mg tablets: take 1 tablet orally every 8 hours as needed for pain. Dispense thirty (30). No refills. -- Armond Valenzuela DO
--- NOTE | 2016-08-14 16:40 | ED MED RECONCILIATION SUMMARY ---
Patient: HARJIT STEVENSON Medication Reconciliation Report [facility] VisitID: [id number] [address] [place] [address] 36y, F Registration Date/Time: 08/14/2016 Weight: 60.7 kg Height/Length: 62 in. BMI: 24.5 ALLERGIES: Augmentin, Doxycycline Calcium, Sulfa Antibiotics The patient's Home Medications are listed below: THE FOLLOWING MEDICATIONS NEED TO BE RECONCILED: Gabapentin Oral 600 mg, 2x a day Linzess Oral (145 mcg) 1 capsule, daily Percocet Oral 10/325 mg, 4x a day TraZODone HCl Oral 100 mg, daily Xanax Oral 1 mg, 2x a day The source(s) of the original Home Medication information: Not obtained. The following Medications were given to the patient in the Emergency Department: None. The following Medications were prescribed to the patient: Acetaminophen (available over the counter): take according to label instructions. -- Armond Valenzuela DO Ibuprofen 600mg tablets: take 1 tablet orally every 8 hours as needed for pain. Dispense thirty (30). No refills. -- Armond Valenzuela DO
== END 2016-08-14 12:05 | disposition home or self-care (01) ==
LOC: ED SRH 10:39
DX: S92.534A Nondisplaced fracture of distal phalanx of right lesser toe(s), initial encounter for closed fracture (principal); S90.414A Abrasion, right lesser toe(s), initial encounter; S99.921A Unspecified injury of right foot, initial encounter; V18.0XXA Pedal cycle driver injured in noncollision transport accident in nontraffic accident, initial encounter; Y93.55 Activity, bike riding; Y92.009 Unspecified place in unspecified non-institutional (private) residence as the place of occurrence of the external cause; Y99.8 Other external cause status; Z88.1 Allergy status to other antibiotic agents; K21.9 Gastro-esophageal reflux disease without esophagitis; Z79.899 Other long term (current) drug therapy